=== PATIENT | male | born 1955 | race Caucasian/White ===

== ENCOUNTER 2017-02-12 12:48 | Emergency (ER) | payer BC ==
[2017-02-12 12:58] VITALS: BP 134/76; PULSE 76; RESP 15; TEMP 97.4; O2SAT 98
--- NOTE | 2017-02-12 13:16 | EDPHY ---
HPI/HX/ROS/PE/MDM Narrative: CHIEF COMPLAINT: Lightening flashes in vision HPI: The patient is a 61 y/o male, with a history of prostate cancer, arriving with his complaining of acute onset "lightening flashes" in his vision this morning. He has no underlying history of eye disease, surgeries, or procedures and denies any trauma to his head or eye. He does have visual floaters at baseline for the last few decades that are unchanged today. While walking at the [employer] this morning, he began to have periodic flashes in the vision of his left eye. When present, they cause a temporary vision cut that returns as soon as the flash ends. He does not describe visual field cuts and the flashes are not associated with pain, headache, or dizziness. He does note the flashes are worse and more frequent when outside. He contacted a nurse line that referred him to urgent care and urgent care referred him on to the ED. REVIEW OF SYSTEMS: Aside from elements discussed in the HPI, a comprehensive 10-point review of systems was reviewed and is negative. 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 PHYSICAL EXAM: General:Patient is alert, in no acute distress. ENT:Eyes are normal to inspection, EOMI, nontender, normal sensation to globes. ENT inspection normal. Neck: Normal inspection. Full range of motion. Respiratory:No respiratory distress. Breath sounds normal bilaterally. Cardiovascular: Regular rate and rhythm. Strong peripheral pulses. Normal cap refill. Abdomen:The abdomen is nontender to palpation. There are no peritoneal signs. Back: Normal to inspection. No tenderness to palpation. Skin: Normal color. No rash. Warm and dry. Extremities: Normal appearance. Full range of motion. Neuro: Oriented x3. Normal motor function. Normal sensory function. No perceptible vision cuts. ED Course: Consulted with Dr. Wilson, ophthalmology. He will see patient in his office at 18:00 tonight. I discussed plan for outpatient follow up with the patient and return precautions. He is comfortable with plan for discharge. General Time Seen by Provider: 02/12/17 13:11 Initial Vital Signs: Initial Vital Signs Temperature (C) 36.3 C 02/12/17 12:54 Heart Rate 76 02/12/17 12:54 Respiratory Rate 15 02/12/17 12:54 Blood Pressure 134/76 H 02/12/17 12:54 O2 Sat (%) 98 02/12/17 12:54 O2 Delivery Mode Room Air Allergies/Adverse Reactions: erythromycin base Allergy (Verified 02/12/17 12:53) steroids Allergy (Uncoded 02/12/17 12:53) Home Medications: Medication Instructions Recorded Aspirin EC 81 mg (*) 02/12/17 Lipitor 02/12/17 Nasogel Nasal [place] 02/12/17 Departure - Departure Disposition: Home, Routine, Self-Care Clinical Impression: Photopsia of left eye Condition: Good Instructions: Visual Floaters (ED) Additional Instructions: Go to Dr. Wilson's office tonight at 6:00pm for further evaluation. His office is located at [address] here in [place]. Return to the ED in the interim for severe pain, vision loss, headache, weakness or numbness on one side of your body, or other worsening of condition. Referrals: Antwan Jolly MD [Primary Care Provider] - As per Instructions Vic Wilson MD [Medical Doctor] - As per Instructions Report Scribed for: Satinder Batista Report Scribed by: Meron Fletcher Date of Report: 02/12/17 Time of Report: 13:17 Physician Review and Approval Statement: Portions of this note were transcribed by an ED scribe. I personally performed the history, physical exam, and medical decision making; and confirm the accuracy of the information in the transcribed note.
== END 2017-02-12 13:47 | disposition home or self-care (01) ==
DX: H53.19 Other subjective visual disturbances (principal); Z79.82 Long term (current) use of aspirin; Z85.46 Personal history of malignant neoplasm of prostate

== ENCOUNTER → 2018-06-01 | Outpatient (CLI) | payer BC | LOC: BMCIMAGING 10:48 | PROVIDERS: ATTEND Internal Medicine | DX: M22.2X1 Patellofemoral disorders, right knee (principal); M79.89 Other specified soft tissue disorders ==